=== PATIENT | female | born 1945 | race Caucasian/White ===

== ENCOUNTER → 2023-11-06 | Outpatient (CLI) | payer MEDICARE, SELFPAY ==
--- NOTE | 2023-11-06 13:56 | CT_ITS ---
CT RIGHT LOWER EXTREMITY WITH 3-D IMAGING CLINICAL INDICATION: Pain in right leg. TECHNIQUE: Axial CT images of the right lower extremity (from the right knee to the right ankle) was performed without IV contrast material. Coronal and sagittal reformats were provided. RADIATION DOSAGE (If Supplied By Facility): CTDIvol = ( 15.35 ) mGy, DLP = ( 818.13 ) mGycm COMPARISON: No relevant prior comparison study available. FINDINGS: Bones: There is a medial unicompartment knee arthroplasty in place, with no periprosthetic fracture. 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 Normal tibia/fibula. Osseous structures are intact without evidence of fracture or dislocation. No lytic or blastic osseous masses. Soft Tissues: The deep soft tissue structures are unremarkable. There is subcutaneous soft tissue edema around the ankle and lower half of the calf. The superficial soft tissues are otherwise unremarkable without evidence of hematoma, or foreign body. CT/Extremity Lower without Contra IMPRESSION: Medial unicompartment knee arthroplasty in place, with no periprosthetic fracture. 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 Subcutaneous soft tissue edema around the ankle and lower half of the calf. Electronically Signed: Gonsalo Hanley MD at 14:50 EDT Reading Location ID and State: [facility] / [place] , Service support ,
== END | disposition home or self-care (01) ==
LOC: CT 13:50
DX: R60.0 Localized edema (principal); M79.604 Pain in right leg; L03.115 Cellulitis of right lower limb
CPT/HCPCS: 73700

== ENCOUNTER → 2024-05-06 | Outpatient (CLI) | payer MEDICARE, SELFPAY ==
--- NOTE | 2024-05-06 14:52 | ECHOD_ITS ---
Version 2 Reason For Study: CARDIOMEGALY Procedure This was a 2D Doppler, Color Flow transthoracic echocardiogram. Exam performed in department. Left Ventricle Normal LV size. Left ventricular systolic function is normal. The left ventricular ejection fraction is 65 %. Stage 1 diastolic dysfunction. No regional wall motion abnormalities noted. Right Ventricle Normal RV size. Normal systolic function. Atria Normal left atrium. Normal right atrium. Mitral Valve Mild focal mitral valve calcification. Mild (1+) eccentric mitral valve insufficiency. Tricuspid Valve Normal tricuspid valve. Mild tricuspid valve insufficiency. Pulmonary artery systolic pressure is 34 mmHg. Aortic Valve Trisinus/trileaflet aortic valve. Pulmonic Valve Normal pulmonic valve. Great Vessels Normal aortic root. The pulmonary artery is normal size. Inferior vena cava collapse with respiration. Pericardium/Pleural No pericardial effusion. MMode/2D Measurements & Calculations LVIDd: 4.7 cm IVSd: 1.0 cm Ao root diam: 3.3 cm LVIDs: 3.2 cm LVPWd: 0.93 cm RVDd: 4.0 cm FS: 32.4 % asc Aorta Diam: 3.7 cm LAV(MOD-bp): 39.8 ml LVAd ap4: 24.1 cm2 LAV(MOD-bp) Indexed: 23.0 ml/m2 LVLd ap4: 7.1 cm LAV(MOD-sp2): 34.8 ml EDV(MOD-sp4): 67.2 ml LAV(MOD-sp4): 39.7 ml EDV(sp4-el): 69.7 ml LVAs ap4: 13.6 cm2 LVLs ap4: 6.1 cm ESV(MOD-sp4): 26.3 ml ESV(sp4-el): 25.7 ml EF(MOD-sp4): 60.8 % EF(sp4-el): 63.1 % SV(MOD-sp4): 40.9 ml SV(sp4-el): 43.9 ml LA A4 area: 16.9 cm2 LA dimension(2D): 4.0 cm RA A4 area: 15.2 cm2 TAPSE: 1.9 cm Time Measurements MV dec time: 0.24 sec Doppler Measurements & Calculations MV E max geraldo: 65.4 cm/sec Lat Peak E' Geraldo: 6.3 cm/sec Med Peak E' Geraldo: 6.2 cm/sec MV A max geraldo: 79.4 cm/sec E/E' lat: 10.4 E/E' med: 10.5 MV E/A: 0.82 Ao V2 max: 164.3 cm/sec LV V1 max: 105.3 cm/sec MV dec slope: 267.6 cm/sec2 Ao max P.9 mmHg LV V1 max P.5 mmHg Ao V2 mean: 105.9 cm/sec LV V1 mean P.2 mmHg Ao mean P.2 mmHg LV V1 mean: 69.0 cm/sec Ao V2 VTI: 28.8 cm LV V1 VTI: 20.9 cm AV (velocity ratio): 0.73 PA V2 max: 142.8 cm/sec TR max geraldo: 277.5 cm/sec PA max PG (full): 5.7 mmHg TR max P.8 mmHg ECHO/Echo Complete Interpretation Summary Normal LV size. Left ventricular systolic function is normal. The left ventricular ejection fraction is 65 %. Stage 1 diastolic dysfunction. Pulmonary artery systolic pressure is 34 mmHg. Ordering Physician: Jose Waddell Referring Physician: Jose Waddell Performed By: Elaina Magana RDCS and Student
--- NOTE | 2024-05-06 15:53 | CT_ITS ---
HISTORY: PULMONARY NODULES. TECHNIQUE: CT of the chest was performed after the intravenous administration of 100 mL Isovue-300. Coronal and sagittal reformatted images. Individualized dose optimization techniques were used for this CT. 799 images. COMPARISON: None. FINDINGS: CENTRAL AIRWAYS: Patent. LUNGS: Mild paraseptal emphysema and biapical scarring. Mild pleural-based, nodular, groundglass opacities in the right upper and middle lobes measuring to 8 mm. Right lower lobe pleural-based nodules measuring up to 4 mm. Mild bilateral lower lobe atelectasis. Mild lingular atelectasis or consolidation with a 9 mm pleural-based nodule. 5 mm pleural-based left lower lobe nodule. PLEURA: Trace left pleural effusion. HEART/PERICARDIUM: Heart within normal limits in size. No pericardial effusion. AORTA/VESSELS: No thoracic aortic aneurysm or dissection flap. Mild atherosclerosis. No large central filling defect identified in the pulmonary arteries. MEDIASTINUM/BRAD: No pathologically enlarged lymph nodes. OSSEOUS STRUCTURES: Degenerative change. UPPER ABDOMEN: Moderate hiatal hernia. Lobulated left kidney. CT/Chest WITH Contrast IMPRESSION: Mild pleural-based, nodular, groundglass opacities in the right upper and lower lobes which may be infectious or inflammatory. Multiple bilateral pleural-based nodules measuring up to 9 mm in the lingula. Recommend 1-3 month follow-up. Presence of pulmonary emphysema on CT is an independent risk factor for lung cancer. Consider LDCT lung cancer screening in the future. Electronically Signed: Camryn Perez MD at 10:30 EDT ,
--- NOTE | 2024-05-06 15:54 | US_ITS ---
EXAM: US SOFT TISSUES HEAD AND NECK, THYROID CLINICAL INDICATION: MULTIPLE THYROID NODULES TECHNIQUE: Greyscale and color doppler imaging was performed of the thyroid gland. COMPARISON: CT chest on the same date FINDINGS: LEFT THYROID LOBE: The left thyroid lobe measures 3.6 x 1.1 1.1 cm. Spongiform nodule within the left thyroid lobe measuring 0.6 cm. TI-RADS points: 0. TI-RADS category: TR1. This nodule is benign and no FNA or follow-up is necessary. Homogeneous echotexture with normal vascularity. RIGHT THYROID LOBE: The right thyroid lobe measures 4.8 x 1.7 x 1.4 cm. Spongiform or predominantly cystic 6 mm nodule within the right thyroid lobe is present. TI-RADS points: 0. TI-RADS category: TR1. This nodule is benign and no FNA or follow-up is necessary. 1.3 cm nodule within the upper pole of the right thyroid lobe. This nodule is solid or almost completely solid, hypoechoic, [id number], smoothly marginated and contains no echogenic foci. TI-RADS points: 4. TI-RADS category: TR4. This nodule is moderately suspicious. Recommend follow-up thyroid ultrasounds at 1, 2, 3 and 5 years. 0.7 cm right thyroid lobe interpolar region nodule. This nodule is solid or almost completely solid, hypoechoic, [id number], ill-defined and contains no echogenic foci. TI-RADS points: 4. TI-RADS category: TR4. This nodule is moderately suspicious but no FNA or follow-up is necessary given the small size of this nodule. ISTHMUS: Thyroid isthmus measures 0.2 cm. No thyroid nodules are present. US/Thyroid IMPRESSION: Moderately suspicious nodules in the right thyroid lobe although FNA is not indicated, recommend follow-up at 1, 2, 3, and 5 years. Electronically Signed: Mich Muñoz DO at 20:19 EDT ,
[2024-05-06 16:18] LABS: CREATININE FINGERSTICK < 1.0 mg/dL (0.55-1.02); EGFR FINGERSTICK > 60.0000 mL/min (>60)
== END | disposition home or self-care (01) ==
LOC: CVS 14:50
DX: D50.9 Iron deficiency anemia, unspecified (principal); R91.8 Other nonspecific abnormal finding of lung field; I51.7 Cardiomegaly; E04.2 Nontoxic multinodular goiter
CPT/HCPCS: 71260; 76536; 93306; Q9967